=== PATIENT | female | born 1975 | race Hispanic/Latino ===

== ENCOUNTER 2019-10-16 14:30 | Emergency (ER) | payer OTHER ==
[2019-10-16] MEDS ORDERED: HYDROCODONE/APAP 10/325 TAB ONE (15:31)
--- NOTE | 2019-10-16 16:38 | RAD REPORT ---
EXAM DESCRIPTION: RAD - Knee Right 3 View - 10/16/2019 4:04 pm CLINICAL HISTORY: Trauma, right knee pain COMPARISON: None. FINDINGS: No fracture, dislocation or periosteal reaction.Small to moderate joint effusion seen. Spu rring seen along the articular margins of the patella and minimal marginal spurring lateral compartme nt and tibial spine. No joint space narrowing. No foreign body or other soft tissue abnormality. IMPRESSION: Joint degenerative change and joint effusion present as detailed. No acute finding. Clinical concerns for internal derangement or occult bony injury could be further assessed with MR im aging.
--- NOTE | 2019-10-16 16:39 | RAD REPORT ---
EXAM DESCRIPTION: US - Extremity Nonvascular Limited - 10/16/2019 4:28 pm FINDINGS: Limited sonographic evaluation was performed of the soft tissues in the right knee area of seen. No mass or abnormal fluid collection was seen in the soft tissues.
--- NOTE | 2019-10-16 16:55 | EDPHYS ---
Physician Documentation [facility] Name: Emma Rodriguez Age: 44 yrs Sex: Female : 1975 Arrival Date: 10/16/2019 Time: 14:33 Bed 5 Private MD: ED Physician Ward De Santiago HPI: 10/16 16:27 This 44 yrs old Female presents to ER via Wheelchair with complaints of Knee kdr Pain. 16:27 The patient presents with decreased range of motion, an injury, pain, that is acute. kdr The complaints affect the right knee. Context: The problem was sustained at home, resulted from a repetitive motion, Walking and felt a pop and cold sensation then was not able to bear weight. She now c/o pain to the anterior inferior medical subpatellar region, the patient is not able to bear weight, the patient is not able to ambulate, Problem is a result from a previous injury: has seen multiple specialist for pain in the same knee with out dx or improvement of existing problem. This pain is new and worse today. Onset: The symptoms/episode began/occurred acutely, suddenly, just prior to arrival. Modifying factors: The symptoms are alleviated by nothing. remaining still, the symptoms are aggravated by movement, weight bearing, bending knee. Associated signs and symptoms: The patient has no apparent associated signs or symptoms. Treatment prior to arrival includes: no previous treatment. Severity of symptoms: At their worst the symptoms were moderate, severe, incapacitating, in the emergency department the symptoms are unchanged. The patient has experienced similar episodes in the past, but today's symptoms are worse. The patient has not recently seen a physician. 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 - Social history:: Smoking status: Patient/guardian denies using tobacco. - Ebola Screening: : No symptoms or risks identified at this time. ROS: 16:27 Constitutional: Negative for fever, chills, and weight loss, Eyes: Negative for injury, kdr pain, redness, and discharge, Neck: Negative for injury, pain, and swelling, Cardiovascular: Negative for chest pain, palpitations, and edema, Respiratory: Negative for shortness of breath, cough, wheezing, and pleuritic chest pain, Abdomen/GI: Negative for abdominal pain, nausea, vomiting, diarrhea, and constipation, Back: Negative for injury and pain, : Negative for injury, bleeding, discharge, and swelling, Skin: Negative for injury, rash, and discoloration, Neuro: Negative for headache, weakness, numbness, tingling, and seizure activity. Psych: Negative for depression, anxiety, suicide ideation, homicidal ideation, and hallucinations, Allergy/Immunology: Negative for hives, rash, and allergies, Endocrine: Negative for neck swelling, polydipsia, polyuria, polyphagia, and marked weight changes, Hematologic/Lymphatic: Negative for swollen nodes, abnormal bleeding, and unusual bruising. 16:27 MS/extremity: Positive for decreased range of motion, pain, tenderness, of the right knee. Exam: 16:27 Constitutional: This is a well developed, well nourished patient who is awake, alert, kdr and in no acute distress. 16:27 Musculoskeletal/extremity: Extremities: grossly normal except: noted in the right knee: decreased ROM, laceration, pain, swelling, tenderness. Vital Signs: 14:41 BP 135 / 78; Pulse 86; Resp 20; Pulse Ox 100% ; Weight 130.63 kg; Height 5 ft. 2 in. sv (157.48 cm); Pain 9/10; 15:58 BP 125 / 82; Pulse 66; Resp 18; Temp 98.3(O); Pulse Ox 100% on R/A; ae4 14:41 Body Mass Index 52.68 (130.63 kg, 157.48 cm) sv MDM: 16:27 Data reviewed: vital signs, nurses notes, radiologic studies. Counseling: I had a kdr detailed discussion with the patient and/or guardian regarding: the historical points, exam findings, and any diagnostic results supporting the discharge/admit diagnosis, radiology results, the need for outpatient follow up. 16:54 Patient medically screened. kdr 10/16 15:22 Order name: Knee Right 3 View XRAY kdr 10/16 15:22 Order name: US Extrmty Nonvasular Limited kdr 10/16 15:22 Order name: Al wrap-joint; Complete Time: 16:10 kdr 10/16 15:22 Order name: Crutches; Complete Time: 16:10 kdr Administered Medications: 15:33 Drug: [place] 10 mg-325 mg 1 tabs Route: PO; jl7 16:10 Follow up: Response: Pain is decreased ae4 16:11 Follow up: Response: RASS: Alert and Calm (0) ae4 Disposition: 10/16/19 16:54 Discharged to Home. Impression: Pain in right knee. - Condition is Stable. - Discharge Instructions: Joint Pain, Musculoskeletal Pain, Knee Pain. - Prescriptions for Tramadol 50 mg Oral Tablet - take 1 tablet by ORAL route every 8 hours as needed; 12 tablet. - Medication Reconciliation Form, Thank You Letter, Prescription Opioid Use form. - Follow up: Private Physician; When: 2 - 3 days; Reason: If symptoms return, Further diagnostic work-up, Recheck today's complaints, Continuance of care, Re-evaluation by your physician. - Problem is an acute exacerbation. - Symptoms have improved. Signatures: Dispatcher [employer] EDNuzhat Aldridge, RN RN Ward De Santiago MD MD kdr Anthony Thomas RN RN jl7 Artemio Cyr RN ae4 Corrections: (The following items were deleted from the chart) 17:14 16:54 10/16/2019 16:54 Discharged to Home. Impression: Pain in right knee. Condition is jl7 Stable. Forms are Medication Reconciliation Form, Thank You Letter, Antibiotic Education, Prescription Opioid Use. Follow up: Private Physician; When: 2 - 3 days; Reason: If symptoms return, Further diagnostic work-up, Recheck today's complaints, Continuance of care, Re-evaluation by your physician. Problem is an acute exacerbation. Symptoms have improved. kdr
--- NOTE | 2019-10-16 16:55 | ER ---
Nurse's Notes [facility] Name: Emma Rodriguez Age: 44 yrs Sex: Female : 1975 Arrival Date: 10/16/2019 Time: 14:33 Bed 5 Private MD: Diagnosis: Pain in right knee Presentation: 10/16 14:34 Presenting complaint: Patient states: "I heard a snap today I think I stepped wrong." sv c/o right knee pain, reports having an injury and bruising to that knee since last year and has seen specialists for it. Transition of care: patient was not received from another setting of care. Onset of symptoms was October 16, 2019. Risk Assessment: Do you want to hurt yourself or someone else? Patient reports no desire to harm self or others. Initial Sepsis Screen: Does the patient meet any 2 criteria? No. Patient's initial sepsis screen is negative. Does the patient have a suspected source of infection? No. Patient's initial sepsis screen is negative. Care prior to arrival: None. 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 - Social history:: Smoking status: Patient/guardian denies using tobacco. - Ebola Screening: : No symptoms or risks identified at this time. Screenin:14 Abuse screen: Denies threats or abuse. Nutritional screening: No deficits noted. ae4 Patient takes "diet pills to lose weight". Tuberculosis screening: No symptoms or risk factors identified. Fall Risk Fall in past 12 months (25 points). Secondary diagnosis (15 points) impaired mobility, No IV (0 pts). Ambulatory Aid- Crutches/Cane/Walker (15 pts). Gait- Weak (10 pts.). Mental Status- Oriented to own ability (0 pts). Assessment: 15:04 General: Appears uncomfortable, obese, Behavior is cooperative, anxious. Pain: ae4 Complains of pain in right knee Pain currently is 10 out of 10 on a pain scale. Neuro: Level of Consciousness is awake, alert, obeys commands, Oriented to person, place, time, situation, Appropriate for age. Cardiovascular: Patient's skin is warm and dry. Respiratory: Airway is patent Respiratory effort is even, unlabored, Respiratory pattern is regular, symmetrical. GI: Abdomen is round obese. : No signs and/or symptoms were reported regarding the genitourinary system. : No signs and/or symptoms were reported regarding the genitourinary system. EENT: No signs and/or symptoms were reported regarding the EENT system. Derm: Skin is normal. Derm: Discoloration, darkened skin coloring to right knee cap area. Patient states it is discoloration from a previous abrasion. Musculoskeletal: Swelling present in right knee. 16:21 Reassessment: Ultrasound at bedside. ae4 17:00 Reassessment: Patient appears in no apparent distress at this time. Patient and/or jl7 family updated on plan of care and expected duration. Pain level reassessed. Patient is alert, oriented x 3, equal unlabored respirations, skin warm/dry/pink. Patient states feeling better. Patient states symptoms have improved. Vital Signs: 14:41 BP 135 / 78; Pulse 86; Resp 20; Pulse Ox 100% ; Weight 130.63 kg; Height 5 ft. 2 in. sv (157.48 cm); Pain 9/10; 15:58 BP 125 / 82; Pulse 66; Resp 18; Temp 98.3(O); Pulse Ox 100% on R/A; ae4 14:41 Body Mass Index 52.68 (130.63 kg, 157.48 cm) sv ED Course: 14:33 Patient arrived in ED. sv 14:37 Ward De Santiago MD is Attending Physician. kdr 14:38 Artemio Cyr RN is Primary Nurse. ae4 14:41 Triage completed. sv 14:42 Arm band placed on. sv 15:13 Patient has correct armband on for positive identification. Bed in low position. Call ae4 light in reach. Side rails up X 1. Adult w/ patient. Pulse ox on. NIBP on. 16:04 Knee Right 3 View XRAY In Process Unspecified. EDMS 16:26 Ultrasound completed. Patient tolerated well. sg3 16:33 Extrmty Nonvasular Limited In Process Unspecified. EDMS 17:12 No provider procedures requiring assistance completed. Patient did not have IV access jl7 during this emergency room visit. Administered Medications: 15:33 Drug: [place] 10 mg-325 mg 1 tabs Route: PO; jl7 16:10 Follow up: Response: Pain is decreased ae4 16:11 Follow up: Response: RASS: Alert and Calm (0) ae4 Outcome: 16:54 Discharge ordered by . kdr 17:12 Discharged to home ambulatory. jl7 17:12 Condition: stable 17:12 Discharge instructions given to patient, Instructed on discharge instructions, follow up and referral plans. Demonstrated understanding of instructions, follow-up care. 17:14 Patient left the ED. jl7 Signatures: Dispatcher [employer] Nuzhat Cleveland, RN RN Ward Caballero MD MD kdr Leal, Jahala, RN RN jl7 Patricia Grigsby sg3 Artemio Cyr RN RN ae4
[2019-10-16 19:12] VITALS: O2SAT 100
[2019-10-16 19:14] VITALS: BP 125/82; TEMP 98.3
== END 2019-10-16 17:14 | disposition home or self-care (01) ==
LOC: ER 14:30
DX: M25.561 Pain in right knee (principal); Z88.5 Allergy status to narcotic agent
CPT/HCPCS: 76882; 99283